=== PATIENT | male | born 1965 | race African-American/Black ===

== ENCOUNTER 2019-05-30 06:16 | Day surgery (SDC) | payer MEDICAID ==
[~2019-05-30] VITALS: Ht 165.1 cm; Wt 85.7 kg
[2019-05-30] MEDS ORDERED: LIDOCAINE 2% 100 MG/5 ML UJET TP ONE (07:55)
[2019-05-30] MEDS ORDERED: fentaNYL 0.05 MG/ML VIAL ONE (07:55)
[2019-05-30] MEDS ORDERED: MIDAZOLAM 2 MG/2 ML VIAL ONE (08:05)
[2019-05-30] MEDS ORDERED: MIDAZOLAM 2 MG/2 ML VIAL IVP ONE (10:25)
[2019-05-30] MEDS ORDERED: fentaNYL 0.05 MG/ML VIAL IVP ONE (10:25)
== END 2019-05-30 09:12 | disposition home or self-care (01) ==
LOC: MDS 06:16 → MMU 06:26 → MDS 09:12
PROVIDERS: ATTEND Internal Medicine Gastroenterology
DX: K62.5 Hemorrhage of anus and rectum (principal); K63.5 Polyp of colon; K62.3 Rectal prolapse; K57.30 Diverticulosis of large intestine without perforation or abscess without bleeding; E66.9 Obesity, unspecified; Z68.30 Body mass index [BMI] 30.0-30.9, adult; Z79.899 Other long term (current) drug therapy; Z87.891 Personal history of nicotine dependence
CPT/HCPCS: 45380; J2250; J3010